=== PATIENT | male | born 1990 | race Caucasian/White ===

== ENCOUNTER → 2016-08-02 | Outpatient (CLI) | payer BC ==
[~2016-08-02] MED LIST: BENADRYL25 MG PO; CELEXA20 MG PO; FLEXERIL10 MG PO; HYDROCORTISONE TP; MEDROL DOSEPAK4 MG PO; MOTRIN800 MG PO; SILVADENE1% TP; VICODIN 5/500 505 MG PO; VISTARIL25 M2 PO
== END ==
LOC: US 07:17
DX: R11.10 Vomiting, unspecified (principal)

== ENCOUNTER → 2016-08-18 | Day surgery (SDC) | payer BC ==
[2016-08-15 10:46] LABS: BILIRUBIN NEGATIVE (NEGATIVE); BLOOD NEGATIVE (NEGATIVE); CLARITY CLEAR (CLEAR); COLOR YELLOW (YELLOW); GLUCOSE NEGATIVE (NEGATIVE); KETONE NEGATIVE (NEGATIVE); LEUKO ESTERASE NEGATIVE (NEGATIVE); NITRITE NEGATIVE (NEGATIVE); PH 7.5 (5.0-9.0); PROTEIN NEGATIVE (NEGATIVE)
[2016-08-15 10:49] LABS: BASO % 0.5 % (0.0-1.0); EOS # 0.3 10*3/uL (0.0-0.4); EOS % 3.4 % (1.0-4.0); HEMATOCRIT 47.7 % (42.0-52.0); HEMOGLOBIN 16.2 g/dl (14.0-18.0); LYMPH # 2.3 10*3/uL (1.3-4.4); LYMPH % 27.6 % (27.0-41.0); MEAN CORPUSCULAR HGB 30.9 pg (27.0-31.0); MEAN PLATELET VOLUME 9.5 fl (9.6-12.3); MONO # 0.7 10*3/uL (0.1-1.0); MONO % 7.8 % (3.0-9.0); NEUT % 60.5 % (47.0-73.0); PLATELET COUNT AUTOMATED 282 10*3/uL (130-400); RED BLOOD COUNT 5.24 10*6/uL (4.50-5.90); RED CELL DISTRI WIDTH 11.9 % (0-14.5); WHITE BLOOD COUNT 8.3 10*3/uL (4.8-10.8)
[2016-08-15 10:54] LABS: RBC 0-2 rbc/hpf (0-2)
[2016-08-15 11:22] LABS: ALBUMIN 4.2 gm/dl (3.1-4.5); BILIRUBIN, DIRECT 0.1 mg/dL (0.0-0.2); BUN 7 mg/dl (7-24); CARBON DIOXIDE 33 mmol/L (21-32); CHLORIDE 104 mmol/L (98-107); EST GLOM FILT AFRICAN AMERICAN > 60 ml/min; GLUCOSE 79 mg/dL (65-99); SGOT/AST 33 IU/L (3-35); SGPT/ALT 71 U/L (12-78); SODIUM 141 mmol/L (136-145)
[2016-08-15 11:23] LABS: ALKALINE PHOSPHATASE 102 U/L (45-117); BILIRUBIN, TOTAL 0.6 mg/dl (0.2-1.0); PROTHROMBIN TIME 10.6 SECONDS (9.0-12.4); TOTAL PROTEIN 7.8 gm/dL (6.4-8.2)
[~2016-08-18] VITALS: Ht 172.7 cm; Wt 86.2 kg
[~2016-08-18] MED LIST changes: +NORCO 5-325 TA1 EACH PO; +PANTOPRAZOLE SO40 MG PO
--- NOTE | ~2016-08-18 | O ---
[place], [place] OPERATIVE NOTE NAME: ZENA GONZALEZ [facility] #: [id number] UNIT #: [id number] ROOM: DOCTOR: MINH AHMADI MD BIRTHDATE: [birth year] DOS: 08/18/2016 PREOPERATIVE DIAGNOSIS: Symptomatic gallstones. POSTOPERATIVE DIAGNOSIS: Symptomatic gallstones. PROCEDURE: Laparoscopic cholecystectomy. 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 ANESTHESIA: General with endotracheal intubation. INDICATIONS: This is a 26-year-old gentleman with a history of symptomatic gallstones, who is here for the above-mentioned procedure. The procedure and its complications were explained to the patient in detail preoperatively. Complications that were discussed included but were not limited to bleeding, infection, hematoma/seroma/abscess formation, biloma formation, inadvertent injury to the common bile duct and incisional hernia formation. He agreed to proceed. DESCRIPTION OF PROCEDURE: After identifying the patient, the patient was brought to the operating suite and laid in the supine position. After time-out procedure was called, the parts were then painted and draped in the usual sterile fashion. This was all done after anesthesia was induced by the anesthesia team. A transverse incision below the umbilicus was made. The skin and the subcutaneous tissue were incised in the line of the incision. The fascia was incised and 2 stay sutures with 0 Vicryl were taken on either side. The peritoneum was opened and a 12 mm Noble port was introduced. Thereafter, an epigastric incision of 10 mm and two 5 mm incisions were made in the right upper quadrant and appropriate size ports were introduced. The gallbladder was retracted superiorly and laterally. The cystic duct and the cystic artery were meticulously dissected until the critical view of safety was obtained and the triangle of Calot was identified. Thereafter, each of these structures were clipped 3 times and cut between the first and the second clip. The gallbladder was then removed from the bed of the gallbladder with the help of electrocautery and placed in an EndoCatch bag and removed from the peritoneal cavity. It was sent for histopathological diagnosis. Thereafter, hemostasis was confirmed in the liver bed. After that was done, the right upper quadrant and the epigastric ports were removed and there was no bleeding seen. The umbilical port was also removed and the pneumoperitoneum was decompressed. Thereafter, the stay sutures were tied together and an additional 0 Vicryl stitch was taken to close the fascia. The skin edges were approximated after infiltrating them with local anesthesia (1% lidocaine) and the approximation was done with the help of 4-0 Vicryl in a subcuticular running fashion. Dressings were placed on all the four incisions. The patient tolerated the procedure well and was extubated uneventfully and brought back to the recovery room in a stable fashion. There were no complications. Dr. Minh Ahmadi, the attending surgeon, was present throughout the operating case. [place], [place] OPERATIVE NOTE NAME: ZENA GONZALEZ UNIT #: [id number] ROOM: DOCTOR: MINH AHMADI MD BIRTHDATE: [birth year] Minh Ahmadi MD CM:OPRECORD:OPERATIVE NOTE [id number] MINH AHMADI MD 08/18/16 1552 interface
[2016-08-18 14:23] VITALS: BP 112/77
[2016-08-18 14:38] VITALS: BP 122/72
[2016-08-18 14:53] VITALS: BP 125/82
[2016-08-18 15:08] VITALS: BP 133/67
[2016-08-18 15:23] VITALS: BP 135/88
[2016-08-18 15:35] VITALS: BP 135/84
== END | disposition home or self-care (01) ==
LOC: SDC 08-15 09:30
PROVIDERS: Surgery
DX: K80.10 Calculus of gallbladder with chronic cholecystitis without obstruction (principal); K21.9 Gastro-esophageal reflux disease without esophagitis; F41.9 Anxiety disorder, unspecified; Z82.49 Family history of ischemic heart disease and other diseases of the circulatory system; Z82.3 Family history of stroke

== ENCOUNTER → 2018-05-25 | Outpatient (CLI) | payer BC | END | disposition home or self-care (01) | LOC: RAD 11:55 | DX: M25.511 Pain in right shoulder (principal) ==

== ENCOUNTER → 2018-06-28 | Outpatient (CLI) | payer BC | END | disposition home or self-care (01) | LOC: MRI 14:00 | DX: S46.911D Strain of unspecified muscle, fascia and tendon at shoulder and upper arm level, right arm, subsequent encounter (principal); M25.511 Pain in right shoulder; X58.XXXD Exposure to other specified factors, subsequent encounter ==

== ENCOUNTER → 2018-07-02 | Outpatient (CLI) | payer BC | END | disposition home or self-care (01) | LOC: RAD 08:59 | DX: M54.12 Radiculopathy, cervical region (principal); M25.511 Pain in right shoulder; R20.0 Anesthesia of skin ==

== ENCOUNTER → 2023-12-26 | Outpatient (CLI) | payer BC ==
[~2023-12-26] MED LIST changes: +Albuterol Sulfate 2.5 MG/3 ML VIAL NEB ONE
[2023-12-26 11:45] LABS: BASO % 0.4 % (0.0-1.0); EOS # 0.3 10*3/uL (0.0-0.4); EOS % 3.1 % (1.0-4.0); HEMATOCRIT 46.5 % (42.0-52.0); LYMPH # 2.6 10*3/uL (1.3-4.4); LYMPH % 28.3 % (27.0-41.0); MEAN CELL VOLUME 91.5 fl (80.0-94.0); MEAN CORPUSCULAR HGB 31.3 pg (27.0-31.0); MEAN CORPUSCULAR HGB CONC 34.2 g/dl (33.0-37.0); MEAN PLATELET VOLUME 9.4 fl (9.6-12.3); MONO # 0.6 10*3/uL (0.1-1.0); MONO % 6.4 % (3.0-9.0); NEUT # 5.6 10*3/uL (2.3-7.9); NEUT % 61.6 % (47.0-73.0); PLATELET COUNT AUTOMATED 270 10*3/uL (130-400); RED BLOOD COUNT 5.08 10*6/uL (4.50-5.90); RED CELL DISTRI WIDTH 12.5 % (0-14.5)
[2023-12-26 12:07] LABS: ALKALINE PHOSPHATASE 98 U/L (46-116); BUN 9 mg/dl (9-23); CHLORIDE 104 mmol/L (98-107); POTASSIUM 3.9 mmol/L (3.4-5.1); SGPT/ALT 53 U/L (5-49); TOTAL PROTEIN 7.4 gm/dL (6.0-8.0)
== END | disposition home or self-care (01) ==
LOC: LAB 10:27 → CP 10:27
PROVIDERS: ATTEND Nurse Practitioner
DX: J30.2 Other seasonal allergic rhinitis (principal); F41.9 Anxiety disorder, unspecified; G25.81 Restless legs syndrome